=== PATIENT | female | born 1985 | race Caucasian/White ===

== ENCOUNTER 2019-12-29 15:22 | Outpatient (CLI) | payer BC, SELFPAY ==
--- NOTE | 2019-12-29 15:35 | MM_ITS ---
WS: [id number] Bilateral screening digital mammogram, 12/29/2019 Clinical Data: SCREENING Comparison: 12/19/2018. Findings: The breast parenchymal pattern shows fibroglandular tissue No spiculated masses or clustered calcific ations are seen. There are no secondary signs of carcinoma. MM/[place] [id number] Impression: 1. Negative bilateral mammogram unchanged. 2. Recommend annual screening mammograms. BIRADS: 1-Negative FOLLOW UP: 1 Year Follow-up The CAD instrument checker was used.
== END 2019-12-29 15:23 | disposition home or self-care (01) ==
LOC: RADSHAW 15:23
PROVIDERS: Family Provider Family Medicine; PCP Family Medicine; Visit Provider Family Medicine
DX: Z12.31 Encounter for screening mammogram for malignant neoplasm of breast (principal)
CPT/HCPCS: 77067

== ENCOUNTER 2023-03-28 14:37 | Outpatient (CLI) | payer BC, SELFPAY ==
--- NOTE | 2023-03-28 14:44 | MM_ITS ---
WS: [id number] BILATERAL SCREENING DIGITAL TOMOSYNTHESIS MAMMOGRAM WITH CAD HISTORY: SCREENING COMPARISON: 12/29/2019 and 12/19/2018 Bilateral CC and MLO views with tomosynthesis and synthetic mammography submitted. Computer aided det ection analyzed. Breast composition: The breasts are heterogeneously dense, which may obscure small masses. No suspici ous masses, microcalcifications or architectural distortion. Well-circumscribed masses in the medial LEFT breast near 9:00. These masses are very closely associated with each other. The largest mass xenia sures 11 x 13 mm. There is a smaller mass just posterior and closely associated with the largest mass . The smaller mass measures 7 x 8 mm. Both of these masses are new since the prior study. MM/[place] [id number] IMPRESSION: BI-RADS: 0-Incomplete: Need additional imaging evaluation FOLLOW UP: Need Additional Imaging Recommendation: LEFT breast ultrasound, limited. 9:00 axis.
--- NOTE | 2023-03-28 15:01 | US_ITS ---
WS: [id number] THYROID ULTRASOUND HISTORY: LOW TSH COMPARISON: None available. Right lobe: 2.2 cm x 1.5 cm x 6.0 cm (w x ap x l). Volume: 10.4 cm3. Normal size and echotexture. No significant are dominant nodules are present. Left lobe: 1.7 cm x 1.2 cm x 4.3 cm (w x ap x l). Volume: 4.5 cm3. Normal size and echotexture. No significant or dominant nodules are present. There are very small, morris bcentimeter hypoechoic nodules in the LEFT thyroid. No echogenic foci. Isthmus: 0.4 cm. RIGHT isthmus hypoechoic nodule 5 x 3 x 6 mm. LEFT isthmus nodule 6 x 4 x 6 mm. US/US thyroid [id number] IMPRESSION: 1. Normal size thyroid. 2. Subcentimeter bilateral isthmus and LEFT thyroid nodules. No additional wilmar ging necessary.
== END 2023-03-28 14:38 | disposition home or self-care (01) ==
PROVIDERS: PCP Family Medicine; Visit Provider Family Medicine
DX: Z12.31 Encounter for screening mammogram for malignant neoplasm of breast (principal); N63.20 Unspecified lump in the left breast, unspecified quadrant; E23.0 Hypopituitarism
CPT/HCPCS: 76536; 77063; 77067

== ENCOUNTER 2023-04-30 14:33 | Outpatient (CLI) | payer BC, SELFPAY ==
--- NOTE | 2023-04-30 14:43 | US_ITS ---
WS: [id number] ULTRASOUND BREAST LEFT TECHNIQUE: Ultrasound left breast focused area of concern. CLINICAL INFORMATION: LEFT MAMMOGRAM ABNORMAL COMPARISON: Mammography March 28, 2023 FINDINGS: Ultrasound LEFT breast 10:00 position 5 cm from the nipple. Hypoechoic well-circumscribed lesions corresponding to the mammographic abnormalities. Solid hypoecho ic lesion at 10:00 position 5 cm from the nipple measuring 1.0 x 0.9 x 1.2 cm. Recommend further eval uation with ultrasound-guided biopsy. Additional smaller adjacent lesion measuring 0.5 x 0.6 cm. Recommend biopsy of this adjacent lesion i f continuity cannot be confirmed. US/US breast LT limited* [id number] IMPRESSION: BI-RADS 4 SUSPICIOUS RECOMMEND ULTRASOUND-GUIDED BIOPSY OF THE LEFT BREAST LESIONS.
== END 2023-04-30 14:34 | disposition home or self-care (01) ==
PROVIDERS: PCP Family Medicine; Visit Provider Family Medicine
DX: R92.8 Other abnormal and inconclusive findings on diagnostic imaging of breast (principal); N63.22 Unspecified lump in the left breast, upper inner quadrant
CPT/HCPCS: 76642

== ENCOUNTER 2023-05-29 10:41 | Outpatient (CLI) | payer BC, SELFPAY ==
--- NOTE | 2023-05-29 10:47 | US_ITS ---
WS: [id number] ULTRASOUND-GUIDED LEFT BREAST BIOPSY CLINICAL INFORMATION: ABNORMAL BREAST FINDING L BREAST/2 LEFT BREAST LESIONS COMPARISON: 03/28/2023 and 04/30/2023 FINDINGS: The procedure including risks, benefits, and complications were discussed with the patient who agreed to proceed. Using sterile technique patient was prepped and draped in the usual sterile fashion. Aft er 1% lidocaine utilizing real-time ultrasound guidance 5 14-gauge cores were obtained of the LEFT br east lesion at the 10 o'clock position 5 cm from the nipple. Subsequently a titanium clip was placed in the biopsy cavity. No immediate complications. Pathology demonstrates Final Diagnosis Left breast, 10:00 position, 5.0 cm from nipple, needle core biopsy: 1. Findings consistent with fibroadenoma. 2. No atypia or malignancy is seen. IMPRESSION: 1. Uncomplicated ultrasound-guided LEFT breast biopsy. 2. The pathology demonstrates fibroadenoma. No malignancy or atypia. 3. Recommend 1 year follow-up LEFT breast diagnostic mammography with ultrasound to confirm stabilit y. 4. Subsequently recommend annual screening mammography age 40. US/[place] [id number] BI-RADS: 2-Benign FOLLOW UP: 1 Year Follow-up
== END 2023-05-29 10:42 | disposition home or self-care (01) ==
PROVIDERS: PCP Family Medicine; Visit Provider Family Medicine
DX: N63.22 Unspecified lump in the left breast, upper inner quadrant (principal)
CPT/HCPCS: 19083; 88305

== ENCOUNTER 2023-07-09 10:51 | Outpatient (CLI) | payer BC, SELFPAY ==
--- NOTE | 2023-07-09 11:05 | XRR_ITS ---
PROCEDURE INFORMATION: Exam: XR Left Shoulder Exam date and time: 07/09/2023 11:56 AM Age: 38 years old Clinical indication: Pain; Shoulder; Left; Additional info: Left shoulder joint pain TECHNIQUE: Imaging protocol: Radiologic exam of the left shoulder. Views: 2 or more views. COMPARISON: No relevant prior studies available. FINDINGS: Bones/joints: Normal. Soft tissues: Normal. XR/XR shoulder LT min 2V* [id number] IMPRESSION: No acute findings.
== END 2023-07-09 10:52 | disposition home or self-care (01) ==
PROVIDERS: PCP Family Medicine; Visit Provider Family Medicine
DX: M25.512 Pain in left shoulder (principal)
CPT/HCPCS: 73030

== ENCOUNTER 2023-08-14 14:39 | Outpatient (CLI) | payer BC, SELFPAY ==
--- NOTE | 2023-08-14 14:51 | MR_ITS ---
WS: [id number] MRI LEFT SHOULDER HISTORY: Left shoulder joint pain COMPARISON: None available. TECHNIQUE: Multiplanar sequences of the shoulder joint are submitted. Moderate AC joint arthritis. Joint space is narrowed with osteophytes and soft tissue edema. There is mild encroachment upon the supraspinatus myotendinous insertion. There is an additional osteophyte m easuring 6 mm with moderate encroachment upon the distal supraspinatus tendon and subacromial impinge ment. No significant subacromial or subdeltoid bursal fluid. No os acromion. Normal biceps tendon. No rotator cuff muscle atrophy or edema. No tears are identified. Small caliber axillary pouch with a small amount of increased T2 signal. Inferior glenohumeral ligament is normal. There is mild increas ed T2 signal and thickening of the coracohumeral ligament. Mild narrowing of the glenohumeral joint. No marrow edema or fracture. No labral tear is identified. IMPRESSION: 1. Moderate AC joint arthritis with encroachment upon the myotendinous insertion of the supraspinatus . 2. Moderate subacromial impingement. 3. Findings of adhesive capsulitis. Small axillary pouch with thickening of the coracohumeral ligamen t. 4. No rotator cuff tear.
== END 2023-08-14 14:40 | disposition home or self-care (01) ==
LOC: RAD 14:40
PROVIDERS: PCP Family Medicine; Visit Provider Family Medicine
DX: M19.012 Primary osteoarthritis, left shoulder (principal); M75.42 Impingement syndrome of left shoulder; M75.02 Adhesive capsulitis of left shoulder
CPT/HCPCS: 73221

== ENCOUNTER → 2023-10-02 14:40 | Outpatient (BNVA) | payer BC, SELFPAY | PROVIDERS: PCP Family Medicine; Visit Provider Nurse Practitioner | DX: M75.42 Impingement syndrome of left shoulder; M24.9 Joint derangement, unspecified | CPT/HCPCS: 73030 ==

== ENCOUNTER 2023-10-10 05:43 | Day surgery (SDC) | payer BC, SELFPAY ==
[2023-10-10] VITALS (10 sets, daily range): BP systolic 106–123; BP diastolic 70–79; PULSE 56–67; RESP 15–21; TEMP 36.1–36.4; O2SAT 92–95; BMI 41.6
[2023-10-10] MEDS: sodium chloride 0.9% 1,000 ML 30 ML IV (06:22)
[2023-10-10] MEDS: acetaminophen 1,000 MG/100 ML PIGGYBACK 400 MG IV (06:22)
[2023-10-10] MEDS: CELEcoxib 200 mg Capsule 400 MG PO (06:23)
[2023-10-10] MEDS: gabapentin 300 mg Capsule PO (06:23)
--- NOTE | 2023-10-10 06:50 | ANES.PREANE2 ---
Pre-Anesthetic Assessment Height/Weight: Height 1.6 m Weight 106.594 kg Temp Pulse Resp BP Pulse Ox O2 Del Method 97.3 F L 67 16 106/70 95 Room Air 10/10/23 05:55 10/10/23 05:55 10/10/23 05:55 10/10/23 05:55 10/10/23 05:55 10/10/23 06:04 Operation Date: 10/10/23 07:00 Proposed Procedures p and possible rotator cuff repair(Not Applicable) - Kim Tovar MD s Acromioplasty(Not Applicable) - Kim Tovar MD s Left shoulder open acromioplasty(53036), distal clavicle resection(96236) and possible rotator cuff repair (04021,M75.42(Not Applicable) - Kim Tovar MD Familial anesthetic complications: None Was Beta Enoch taken within 24 hours: N/A Was Clonidine taken within 24 hours: N/A Last intake: Intake Last Liquid Date 10/09/23 Last Liquid Time 19:30 Last Solid Date 10/09/23 Last Solid Time 19:30 Social No alcohol and No tobacco Exam alert, oriented x 3, clear to auscultation bilaterally and regular rate & rhythm Airway Mallampati: Class II Dentition: full Metabolic Morbid Obesity Anesthetic Plan ASA status: 3 Anesthesia: Choice and Regional (specify below) Risk of > 500 ml blood loss (7ml/kg in children): No Medications/Allergies Home Medications Medication Instructions Recorded Confirmed Last Taken Type fluoxetine 10 mg capsule 10 mg PO DAILY 10/08/23 10/08/23 10/01/23 History Allergies Allergy/AdvReac Type Severity Reaction Status Date / Time No Known Allergies Allergy Verified 10/02/23 15:34 Current Medications Generic Name Dose Route Start Last Admin Trade Name Freq PRN Reason Stop Dose Admin Sodium Chloride 1,000 mls @ 30 mls/hr 10/10/23 06:00 10/10/23 06:22 Sodium Chloride 0.9% IV 10/11/23 05:59 30 mls/hr .Q24H NESTOR Administration PFSH Anesthesia Medical History (Updated 10/05/23 @ 17:44 by THEODORE Seo-ESTEVAN) Chronic left shoulder pain AC joint derangement Impingement syndrome, shoulder, left Data Anesthesia Cardiac Studies: No Data to Display
--- NOTE | 2023-10-10 06:52 | ANES.PROC ---
Anesthesia Procedures Procedure/Date: 10/10/23 Nerve Block ^: Nerve Block 1: Main Anesthesia: general anesthesia Time Out Performed: Yes Consent: requested by attending/covering physician, from patient, from other, risks and benefits reviewed and patient agrees to proceed Nerve block location: interscalene (L) Anesthesia monitors applied: pulse oximetry, EKG and BP cuff Nerve block position: semi sitting Anesthetic Used: ropivicaine 0.5% (20 ml) and with decadron (3 mg) Ultrasound used to: recognize landmarks and visualize and ID brachial plexus Nerve Stimulator Used?: No Interscalene/Femoral BLK: 2 stimuplex 22 g needle used for position and inplane approach, visualize local anesthetic spread and no vascular puncture identified Injection: neg aspiration of heme Patient Tolerated Procedure: well and no complications Complications: none
--- NOTE | 2023-10-10 07:00 | W.PM.OPSUD ---
Surgery/Procedure H&P Update DATE OF PROCEDURE: October 10, 2023 DATE H&P PERFORMED: 10/02/23 H&P UPDATE INFORMATION: I have reviewed H&P completed within last 30 days, I have examined patient prior to procedure, No changes to prior documentation and H&P is in [facility] EMR on date indicated PRIMARY INDICATION FOR PROCEDURE: MRI: 1. Moderate AC joint arthritis with encroachment upon the myotendinous insertion of the supraspinatus. 2. Moderate subacromial impingement. 3. Findings of adhesive capsulitis. Small axillary pouch with thickening of the coracohumeral ligament. 4. No rotator cuff tear. PLANNED PROCEDURE: Operation Date: 10/10/23 07:00 Proposed Procedures p and possible rotator cuff repair(Not Applicable) - Kim Tovar MD s Acromioplasty(Not Applicable) - Kim Tovar MD s Left shoulder open acromioplasty(92504), distal clavicle resection(91006) and possible rotator cuff repair (34376,M75.42(Not Applicable) - Kim Tovar MD Related Problem List Diagnoses (1) Impingement syndrome, shoulder, left: (2) AC joint derangement:
[2023-10-10] MEDS: ceFAZolin 2,000 MG in sodium chloride 0.9% (plus) 50 ML 100 MG IV (07:04)
[2023-10-10] MEDS: ceFAZolin 1,000 mg SDV 1000 MG IRRIGATION (07:54)
--- NOTE | 2023-10-10 09:08 | P.OP_ITS ---
Operative Report Date of procedure: October 10, 2023 Pre-op diagnosis: Left shoulder impingement with degenerative osteoarthritis of the acromioclavicular joint and adhesive capsulitis Post-op diagnosis: Left shoulder impingement with degenerative osteoarthritis of the acromioclavicular joint and adhesive capsulitis Post-op findings: Left shoulder. Significant degenerative osteoarthritis of the acromioclavicular joint. Very tight subacromial space with significant impingement and bursitis. No evidence of rotator cuff tear Procedure done: Left acromioplasty with distal clavicle resection and bursectomy Pathology: None Surgeon: Kim Tovar MD Anesthesia: General (Intubated with preoperative interscalene block, ASA 3) Estimated blood loss (mL): 30 IV fluids (mL): 600 Urine output (mL): 0 (No Soto) Complications: None Findings: Significant impingement and significant expansion of the distal clavicle consistent with acromioclavicular joint osteoarthritis. Condition: stable Disposition: PACU (Then return to same-day surgery for discharge to home) Brief History: This 38-year-old woman presented to the office for evaluation of left shoulder pain. The pain been present for approximately 1 year and occasionally radiated down the arm. She had pain where her bra strap sits consistent with her acromioclavicular joint. She was initially seen in the office in mid to late September. MRI was obtained prior to being seen in my office. Findings on this MRI included moderate acromioclavicular joint arthritis with encroachment upon the supraspinatus. There was subacromial impingement findings consistent with adhesive capsulitis, but no rotator cuff tear was identified. The patient wished to proceed with operative intervention in the form of acromioplasty and distal clavicle resection. This was scheduled for her. Questions were answered and consents were signed. Procedure: The patient was brought to the operating theater and underwent general intubated anesthesia, ASA 3 with preoperative supplemental interscalene block. The patient was placed in a beachchair position and subsequently the left upper extremity was prepped and draped in the usual fashion utilizing DuraPrep. The arm was draped free. A surgical pause was performed prior to commencement of the surgi minna procedure. At the time of the surgical pause, we confirmed the site and side of surgery as well as administration of appropriate preoperative antibiotics Ancef 2 g. MRI was also reviewed at that time. Following the surgical pause, an incision was made at approximately the level of the acromioclavicular joint extending across the anterolateral corner of the acromion and distally as necessary. Care was taken to avoid injury to the axillary nerve by limiting the distal extent of the incision. Dissection continued through skin and soft tissues using a scalpel. Hemostasis was obtained using electrocautery. Soft tissues were elevated off the acromion. An acromioplasty was then accomplished using a combination of a saw and a power rasp. With this, we were able to remove compression caused by the acromion. The rotator cuff was then evaluated to look for tears. There was significant bursitis, and a bursectomy was performed. There was no evidence, however, of rotator cuff tear. This was consistent with MRI findings. The rotator cuff was visually evaluated and palpated to assure there was no rotator cuff tear. It was placed through full range of motion. There was minimal evidence of adhesive capsulitis. The acromioclavicular joint was exposed. A saw was then used to resect the distal clavicle without difficulty. The undersurface of the clavicle was palpated and was slightly further debrided. A power rasp was used to further smooth the area. Superficial portion of the clavicle also had partial resection secondary to osteophytes. This was smoothed with a power rasp as well. When this was felt to be adequately resected, the wound was irrigated. Attention was then directed to closure. The wound was irrigated and closure was accomplished with 0 Vicryl in the cap sular tissues overlying the acromioclavicular joint area as well as over the acromion and down into the deltoid muscle. 2-0 Monocryl was used to close the subcutaneous tissues followed by 4-0 Monocryl subcuticular closure. This was followed by Dermabond, Steri-Strips, and OpSite. The patient was placed in a sling and was returned to the recovery room in satisfactory condition. The patient will be discharged to home to follow-up in the office as scheduled. There were no complications and no specimens. Related Problem List Diagnoses (1) Impingement syndrome, shoulder, left: (2) AC joint derangement:
[2023-10-10] MEDS: ondansetron 2 mg/ML SDV 2 mL 4 MG IVP ×3 (09:10→10:02)
--- NOTE | 2023-10-10 10:12 | ANE.PACU2 ---
Inpatient post-anesthesia follow up: Airway intact: Yes Vital signs: Temperature 97.5 F Pulse Rate 56 Respiratory Rate 15 Blood Pressure 115/73 Pulse Oximetry 95 Oxygen Delivery Me thod Room Air Oxygen Flow Rate Fraction of Inspir ed Oxygen Hydration adequate: Yes Nausea and vomiting: No Pain level: 1 Mental status: Baseline
== END 2023-10-10 10:20 | disposition home or self-care (01) ==
PROVIDERS: PCP Family Medicine; Visit Provider Specialist
PROC: (CPT 23130; 2023-10-10 07:00)
PROC: (CPT 23120; 2023-10-10 07:00)
DX: M25.812 Other specified joint disorders, left shoulder (principal); M19.012 Primary osteoarthritis, left shoulder; M75.02 Adhesive capsulitis of left shoulder; E66.01 Morbid (severe) obesity due to excess calories; Z68.41 Body mass index [BMI] 40.0-44.9, adult
CPT/HCPCS: 29822; 29824; 81025; J0131; J0690; J1100; J2405; J2704; J2710; J2795; J3010; J3490; J7030

== ENCOUNTER → 2023-10-24 15:49 | Outpatient (BNVA) | payer BC, SELFPAY | PROVIDERS: PCP Family Medicine; Visit Provider Nurse Practitioner | DX: M24.9 Joint derangement, unspecified (principal); M75.42 Impingement syndrome of left shoulder; Z98.890 Other specified postprocedural states; M62.838 Other muscle spasm | CPT/HCPCS: 73030 ==

== ENCOUNTER → 2024-07-06 14:44 | Outpatient (BNVA) | payer BC, SELFPAY | PROVIDERS: PCP Family Medicine | DX: Z76.89 Persons encountering health services in other specified circumstances (principal) | CPT/HCPCS: 80053; 80061; 83036; 84439; 84443; 85025 ==

== ENCOUNTER 2024-09-03 12:37 | Outpatient (CLI) | payer BC, SELFPAY ==
--- NOTE | 2024-09-03 12:42 | US_ITS ---
WS: [id number] BILATERAL 3D TOMOSYNTHESIS DIGITAL DIAGNOSTIC MAMMOGRAPHY WITH CAD CLINICAL INFORMATION: abnormal left mammogram HISTORY: Diagnostic mammogram. No current complaints. COMPARISON: 03/28/2023 TECHNIQUE: Bilateral CC and MLO views. FINDINGS: Scattered fibroglandular densities bilaterally. Stable LEFT breast nodule with associated biopsy clip. Ultrasound of this area is pending. Breast parenchyma is otherwise stable with a few incidental punctate calcifications and skin calcific ations. ULTRASOUND BREAST LEFT TECHNIQUE: Ultrasound left breast focused area of concern. CLINICAL INFORMATION: Biopsy follow-up COMPARISON: 04/30/2023 FINDINGS: Ultrasound LEFT breast at the 10 o'clock position 5 cm from the nipple. Stable hypoechoic ovoid nodul e measuring 11 x 7 x 13 mm appears unchanged compared to previous. Associated biopsy clip. Recommend return to annual screen mammography. US/US breast LT complete [id number] IMPRESSION: DENSITY: There are scattered areas of fibroglandular density. BI-RADS: 2 - Benign. FOLLOW UP: 1 Year Follow-up Recommend return to annual screening mammography.
--- NOTE | 2024-09-03 13:00 | MM_ITS ---
WS: [id number] BILATERAL 3D TOMOSYNTHESIS DIGITAL DIAGNOSTIC MAMMOGRAPHY WITH CAD CLINICAL INFORMATION: abnormal left mammogram HISTORY: Diagnostic mammogram. No current complaints. COMPARISON: 03/28/2023 TECHNIQUE: Bilateral CC and MLO views. FINDINGS: Scattered fibroglandular densities bilaterally. Stable LEFT breast nodule with associated biopsy clip. Ultrasound of this area is pending. Breast parenchyma is otherwise stable with a few incidental punctate calcifications and skin calcific ations. ULTRASOUND BREAST LEFT TECHNIQUE: Ultrasound left breast focused area of concern. CLINICAL INFORMATION: Biopsy follow-up COMPARISON: 04/30/2023 FINDINGS: Ultrasound LEFT breast at the 10 o'clock position 5 cm from the nipple. Stable hypoechoic ovoid nodul e measuring 11 x 7 x 13 mm appears unchanged compared to previous. Associated biopsy clip. Recommend return to annual screen mammography. MM/MM diag tomosynthesis [id number] IMPRESSION: DENSITY: There are scattered areas of fibroglandular density. BI-RADS: 2 - Benign. FOLLOW UP: 1 Year Follow-up Recommend return to annual screening mammography.
== END 2024-09-03 12:38 | disposition home or self-care (01) ==
LOC: RAD 12:40
PROVIDERS: PCP Family Medicine
DX: N63.22 Unspecified lump in the left breast, upper inner quadrant (principal); R92.323 Mammographic fibroglandular density, bilateral breasts
CPT/HCPCS: 76641; 77062; G0279